=== PATIENT | female | born 1935 | race Caucasian/White ===

== ENCOUNTER 2022-04-13 11:48 | Emergency (ER) | payer MEDICARE, SELFPAY ==
--- NOTE | ~2022-04-13 | XR_ITS ---
EXAMINATION: XR HAND, wrist CLINICAL INFORMATION: Fall pain COMPARISON: None available at the time of this dictation. TECHNIQUE: Frontal lateral oblique views of the hand were obtained. Scaphoid view. FINDINGS: There is no fracture or dislocation. Radiocarpal, intercarpal, carpometacarpal, metacarpophalangeal and interphalangeal joints are intact. There are mild degenerative osteoarthritic changes of interphalangeal joints, first carpometacarpal joint. There are no osteolytic or osteoblastic lesions. There are no bone erosions. Surrounding soft tissue unremarkable. XR/XR hand wrist RT IMPRESSION: * No radiographic evidence of acute fracture. * Mild degenerative osteoarthritis.
--- NOTE | ~2022-04-13 | CT_ITS ---
EXAMINATION: CT HEAD WITHOUT CONTRAST CT FACIAL BONES WITHOUT CONTRAST CT CERVICAL SPINE WITHOUT CONTRAST CLINICAL INFORMATION: Fall, pain. COMPARISON: There are no prior studies available for comparison. TECHNIQUE: Multidetector CT imaging of the head, facial bones and cervical spine was performed without the use of intravenous contrast. Coronal and sagittal reformatted images were generated at the technologist workstation. DLP: 1194 mGy-cm. FINDINGS: CT head: There is no evidence of acute intracranial hemorrhage or territorial infarction. No abnormal mass-effect or midline shift is seen. Jackson to white matter differentiation is well preserved. No extra-axial fluid collections are identified. The ventricles and sulci are commensurately prominent consistent with diffuse volume loss. There are scattered areas of low-attenuation in the ventricular subcortical white matter, and in the basal ganglia consistent with chronic microvascular ischemic changes and lacunar infarcts. There have been bilateral lens extractions. The patient is edentulous in the maxilla. The mastoid air cells are well-aerated. There is extensive debris in the left external auditory canal. There is mucoperiosteal thickening in multiple paranasal sinuses. There are no acute osseous abnormalities. There is hyperostosis frontalis interna. There is soft tissue swelling in the left malar region with a few small foci of subcutaneous air. CT facial bones: There is no acute maxillofacial fracture. The mandible and mandibular condyles are intact. The pterygoid plates, zygomatic arches and the lamina papyracea are intact. The bony orbital rims are intact. There is slight irregular contour of the anterior left nasal bone with minimal soft tissue swelling. There is some air in the preseptal region of the left orbit and in the subcutaneous soft tissues in the left malar region. There is no fluid level in the left maxillary sinus, and no fractures of the maxillary sinus valero are demonstrated. However, there is mild mucoperiosteal thickening in the bilateral maxillary sinuses, right greater than left ethmoid sinuses and right sphenoid sinus. The nasal septum is essentially in the midline. The ostiomeatal complexes are clear. The ethmoid roofs are symmetric. The carotid canals are normally covered by bone. The patient is edentulous in the maxilla. There is periodontal disease around the residual right mandibular molar tooth. There are extensive tonsillar calcifications in the palatine tonsils. The mastoid air cells and visualized middle ear cavities are well-aerated. The TMJs are unremarkable. CT cervical spine: There is anatomic alignment of the vertebral bodies. There is multilevel narrowing of intervertebral disc height between C3-C4 and C7-T1, and there are mild facet arthropathic changes.. Vertebral body heights maintained and no fractures are demonstrated. The lateral masses of C1 and C2 are normally aligned and the dens is intact. There are multilevel marginal osteophytes anteriorly. There are uncovertebral osteophytes at multiple levels with foraminal narrowing. There are atheromatous calcifications of the carotid bifurcations. There are no pneumothoraces in the visualized upper lung lyman. The paravertebral soft tissues are unremarkable. CT/CT cervical spine wo IV con IMPRESSION: CT head: 1. There are no acute bleeds or territorial infarcts. No masses are demonstrated. 2. There are chronic microvascular ischemic changes and there is diffuse volume loss. CT maxillofacial: 1. There is slight irregularity of the left nasal bones with some adjacent soft tissue swelling, which may be consistent with sequelae of trauma. 2. There is also soft tissue swelling in the left malar and left inferior periorbital region with subcutaneous and preseptal air, consistent with sequelae of trauma. No other fractures are demonstrated. 3. There are no fluid levels in the paranasal sinuses. CT cervical spine: 1. There are no acute fractures or subluxations. 2. There is multilevel spondylosis and facet arthropathy. 3. There are no pneumothoraces.
[2022-04-13 11:55] VITALS: BP 210/120; PULSE 106; O2SAT 97
[2022-04-13 12:08] VITALS: BP 193/79; PULSE 86; RESP 16; O2SAT 97; BMI 31.1
--- NOTE | 2022-04-13 12:08 | ED_ITS ---
HPI - Fall General Chief Complaint: Fall Stated Complaint: TRIP/FALL,FACE LACS FROM [place],-[facility] PER EMS Time Seen by Provider: 04/13/22 12:01 Source: patient and EMS Mode of arrival: EMS Limitations: no limitations History of Present Illness HPI Narrative: 86-year-old female with a history of rheumatoid arthritis on methotrexate presents to the emergency room after a trip and fall. Patient reports she struck her face. Denies loss of consciousness. She was not ambulatory after the fall. She denies any anticoagulation. She denies any headache, visual change from baseline, nausea, vomiting, neck pain, chest pain, abdominal pain. She does have facial lacerations as well as some bruising over her right hand. Tetanus status is unknown. MD complaint: fall Related Data Allergies Allergy/AdvReac Type Severity Reaction Status Date / Time No Known Allergies Allergy Verified 04/13/22 12:04 Review of Systems Review of Systems: Yes all other systems are reviewed and are negative Constitutional: Constitutional: Reports no additional constitutional complaints, Denies body ache(s), Denies chills, Denies fever(s), Denies headache(s) and Denies weakness Eyes: Eyes: Reports no additional eye complaints and Denies change in vision ENT: Reports system reviewed and no additional complaints, except as doc umented, Denies dizziness, Denies headache(s), Denies nasal congestion, Denies nasal discharge and Denies neck pain Cardiovascular: Cardiovascular: Reports no additional cardiovascular complaints, Denies chest pain, Denies leg edema and Denies dyspnea Respiratory: Respiratory: Reports no additional respiratory complaints, Denies cough and Denies dyspnea Gastrointestinal: Gastrointestinal: Reports no additional gastrointestinal complaints, Denies abdominal pain, Denies diarrhea, Denies nausea and Denies vomiting Genitourinary: Genitourinary: Reports no additional female genitourinary complaints and Denies urinary incontinence Musculoskeletal: Musculoskeletal: Reports no additional musculoskeletal complaints, Denies back pain, Denies arthralgias, Reports joint swelling, Denies neck pain, Denies numbness and Denies tingling Integumentary/Breasts: Skin/Breast: Reports system reviewed and no additional complaints, except as docu and Denies rash Comments: +lacerations Neurologic: Reports system reviewed and no additional complaints, except as documented, Denies Abnormal speech present, Denies dizziness, Denies headache(s), Denies numbness, Denies tingling and Denies weakness [facility] Past Medical History Attestation statement: The following information was validated with the patient. Source: old records reviewed and nursing notes reviewed Social History Social History Advance Directives: Yes Advance Directives Information Provided: Yes Advance Directives on File: No Physical Exam Vital Signs: Vital Signs: Last Vital Signs Pulse 86 04/13/22 12:08 Resp 16 04/13/22 12:08 BP 193/79 H 04/13/22 12:08 Pulse Ox 97 04/13/22 12:08 O2 Del Method 04/13/22 12:08 BMI result Body Mass Index 31.1 Const: General: cooperative, healthy appearing, comfortable and no acute distress Orientation/consciousness: patient oriented x3 Limitations: no limitations HEENT: Head: Yes normal to inspection, No Dueñas's sign and No raccoon eyes Ears: hearing grossly normal bilaterally and TM's normal bilaterally General nose exam: Normal external nose present and Other nasal findings present (dried epistaxis both nares. No active bleeding or septal hematoma ) Face and sinus: Yes normal facial exam Face images: 1. 3cm laceration 2. 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 UNable to assess ROM Neck: Yes normal visual inspection Chest: Chest palpation & inspection: normal inspection of the chest Resp: Effort & Inspection: normal respiratory effort Auscultation: clear to auscultation bilaterally Cardio: Rate: regular rate Rhythm: regular rhythm Peripheral pulses: Peripheral pulses 2+ throughout GI: Inspection: Yes normal to inspection Palpation (GI): Soft to palpation and nontender Auscultation: normal bowel sounds Back/Spine/Pelvis: Thoracic/Lumbar Spine: thoracic and lumbar spine normal to inspection Skin: General skin exam: no rashes or lesions noted Neuro: General: patient oriented x3, no focal motor deficits, normal sensation to monofilament and Unable to assess gait Cranial nerves: Yes CN's II-XII intact bilaterally, Yes Equal, round and reactive pupils present, Yes Jerome aterally intact EOM present, Yes Nystagmus not present and Yes Normal facial strength present Cognition (Neuro): normal cognition Speech: No Abnormal speech present Gait exam (Neuro): Unable to assess gait Motor exam (neuro): 5/5 motor strength present throughout Sensory Exam: Normal double simultaneous stimulation for sensation Extrem: General: Yes normal to inspection Hand/finger images: 1. +eechymosis with FROM. Course Course Course Narrative: CT head, facial bones, cervical spine show no acute fracture. X-ray of the right hand shows no acute fracture. See procedure note for laceration repair Patient discharged with daughter. Reviewed worrisome signs symptoms of when to return to the emergency room. Comfortable plan for discharge home. Medications Administered Discontinued Medications Generic Name Dose Route Start Last Admin Trade Name Freq PRN Reason Stop Dose Admin Acetaminophen 975 mg 04/13/22 12:15 04/13/22 13:24 Acetaminophen 325 Mg Tablet PO 04/13/22 12:16 975 mg ONCE ONE Administration Diphtheria/Tetanus/Acell Pertussis 0.5 ml 04/13/22 12:04 04/13/22 13:31 Diphth,Pertus(Acell),Tet Adult 0.5 Ml Syringe IM 04/13/22 12:05 0.5 ml .ONCE ONE Administration Lidocaine HCl 2 ml 04/13/22 12:26 04/13/22 14:19 Lidocaine Hcl 1 % Mpf 2 Ml Vial INFILTRATI 04/13/22 12:27 2 ml ONCE ONE Administration Lidocaine HCl 2 ml 04/13/22 12:26 04/13/22 13:23 Lidocaine Hcl 1 % Mpf 2 Ml Vial INFILTRATI 04/13/22 12:27 2 ml ONCE ONE Administration Lidocaine HCl 2 ml 04/13/22 12:27 04/13/22 14:18 Lidocaine Hcl 1 % Mpf 2 Ml Vial INFILTRATI 04/13/22 12:28 2 ml ONCE ONE Administration Procedures Laceration Laceration 1: Site: face Size (cm): 3 Description: linear Depth: simple, single layer Local Anesthetic: lidocaine 1% Amount of anesthesia used (mL): 1 Pre-repair: wound explored, irrigated extensively and deep structures intact Skin layer closed with: other (prolene) Size (cm): 6-0 Number of sutures: 6 Technique: simple, interrupted Laceration 2: Site: face Side (If applicable): left Size (cm): 2 Description: linear Depth: simple, single layer Local Anesthetic: lidocaine 1% Amount of anesthesia used (mL): 1 Pre-repair: wound explored, irrigated extensively and deep structures intact Skin layer closed with: other (prolene ) Size (cm): 6-0 Number of sutures: 5 Technique: simple, interrupted Medical Decision Making Medical Decision Making MDM Narrative: 86 yo female here with facial lacerations, ecchymosis to right dorsal hand after mechanical fall. On arrival normal neuro. No focal deficit. Patient was several facial lacerations which will require repair. Patient with some bruising over the right dorsal hands with full range of motion. Due to age will check CT head, cervical spine. Due to facial lacerations will check CT facial bones. Patient have x-rays of right hand. Patient will be give n a APAP and tetanus will be updated. Differential Diagnosis Differential Diagnoses: The differential diagnosis associated with the present ation includes Independent Interpretation I performed an independent interpretation of an: CT Scan Interpretation: I independently reviewed the x-ray of the right hand and the CT of the head, facial bones and CT cervical spine and agree with the radiologist's report Radiology Impression Discussion of test interpretation with radiology: I have reviewed the radiologist's reading. Radiologist Impression: FINDINGS: There is no fracture or dislocation. Radiocarpal, intercarpal, carpometacarpal, metacarpophalangeal and interphalangeal joints are intact. There are mild degenerative osteoarthritic changes of interphalangeal joints, first carpometacarpal joint. There are no osteolytic or osteoblastic lesions. There are no bone erosions. Surrounding soft tissue unremarkable. XR/XR hand wrist RT IMPRESSION: ? *? No radiographic evidence of acute fracture. ? *? Mild degenerative osteoarthritis. CT/CT facial bones wo IV con IMPRESSION: CT head: 1. There are no acute bleeds or territorial infarcts. No masses are demonstrated. 2. There are chronic microvascular ischemic changes and there is diffuse volume loss. ? CT maxillofacial: 1. There is slight irregularity of the left nasal bones with some adjacent soft tissue swelling, which may be consistent with sequelae of trauma. 2. There is also soft tissue swelling in the left malar and left inferior periorbital region with subcutaneous and preseptal air, consistent with sequelae of trauma. No other fractures are demonstrated. 3. There are no fluid levels in the paranasal sinuses. ? CT cervical spine: 1. There are no acute fractures or subluxations. 2. There is multilevel spondylosis and facet arthropathy. 3. There are no pneumothoraces. ? ? Independent Historian Clinical information obtained from an independent historian. History obtained from or confirmed by: Other (daughter) Discharge Plan Discharge Clinical Impression: Facial laceration, Contusion of left hand Patient Disposition: Home, Self-Care Instructions: Laceration (ED), Contusion in Adults (ED) Additional Instructions: Sutures out in 5-7 days You may wash the area gently with soap and water. No scrubbing the face. Referrals: Rani Llanos MD [Primary Care Provider] - 10 days (as needed)
[2022-04-13] MEDS: Lidocaine HCl 1 % MPF 2 ML VIAL INFILTRATI ×3 (13:23→14:19)
[2022-04-13] MEDS: Acetaminophen 325 MG TABLET 975 MG PO (13:24)
--- NOTE | 2022-04-13 13:30 | PC.NURSE ---
hands and face cleasned with NS, non stick dressing applied under left eye, bleeding controlled, pending imaging results TM
[2022-04-13] MEDS: Diphth,Pertus(ACell),Tet Adult 0.5 ML SYRINGE IM (13:31)
== END 2022-04-13 14:43 | disposition home or self-care (01) ==
PROVIDERS: Emergency Provider Student in an Organized Health Care Education/Training Program; PCP Internal Medicine
DX: S01.81XA Laceration without foreign body of other part of head, initial encounter (principal); S60.512A Abrasion of left hand, initial encounter; S60.222A Contusion of left hand, initial encounter; R51.9 Headache, unspecified; M54.2 Cervicalgia; M25.531 Pain in right wrist; W01.0XXA Fall on same level from slipping, tripping and stumbling without subsequent striking against object, initial encounter; Y93.9 Activity, unspecified; Y92.9 Unspecified place or not applicable; Y99.9 Unspecified external cause status; Z79.899 Other long term (current) drug therapy; Z23 Encounter for immunization
CPT/HCPCS: 12052; 70450; 70486; 72125; 73110; 73130; 90471; 90715; 99283; 99284